=== PATIENT | male | born 1970 | race Caucasian/White ===

== ENCOUNTER 2024-01-08 20:51 | Emergency (ER) | payer BC ==
[~2024-01-08] VITALS: Ht 170.2 cm; Wt 117.9 kg
[2024-01-08 21:22] VITALS: BP_SYST 142; PULSE 91; RESP 20; TEMP 97.9; O2SAT 97
[2024-01-08 22:20] LABS: BILIRUBIN,URINE NEGATIVE (NEGATIVE); BLOOD, URINE NEGATIVE (NEGATIVE); CLARITY/URINE CLEAR (CLEAR); COLOR,URINE YELLOW (YELLOW); GLUCOSE,URINE 3+ (NEGATIVE); KETONES,URINE NEGATIVE (NEGATIVE); LEUKOCYTE ESTERASE ,URINE NEGATIVE (NEGATIVE); NITRITE, URINE NEGATIVE (NEGATIVE); PH,URINE 6.5 (5.0-8.0); PROTEIN URINE NEGATIVE (NEGATIVE); UROBILINOGEN,URINE 0.2 (0.2-1.0)
[2024-01-08] MEDS: KETOROLAC TROMETHAMINE 60 MG/2 ML VIAL IM ONE (22:42)
[2024-01-08] MEDS ORDERED: IBUP-1971 PO (22:59)
[2024-01-08 23:13] VITALS: BP_SYST 142; PULSE 91; RESP 20; TEMP 97.9; O2SAT 97
== END 2024-01-08 23:13 | disposition home or self-care (01) ==
LOC: SED 20:51
DX: R10.9 Unspecified abdominal pain (principal); J45.909 Unspecified asthma, uncomplicated; E11.9 Type 2 diabetes mellitus without complications; I10 Essential (primary) hypertension; Z90.49 Acquired absence of other specified parts of digestive tract; Z90.89 Acquired absence of other organs
CPT/HCPCS: 99283; 81001; 96372; 81003; J1885